=== PATIENT | female | born 1995 | race Caucasian/White ===

== ENCOUNTER → 2017-10-27 | Outpatient (CLI) | payer OTHER ==
--- NOTE | 2017-10-27 14:59 | RADIOLOGY REPORT (SQ) ---
EXAM DESCRIPTION: KNEE LEFT 3 VIEWS COMPLETED DATE/TIME: 10/27/2017 2:48 pm REASON FOR STUDY: PAIN IN LEFT KNEE M25.562 PAIN IN LEFT KNEE COMPARISON: None. NUMBER OF VIEWS: Two views. TECHNIQUE: AP and lateral radiographic images acquired of the left knee. LIMITATIONS: None. FINDINGS: MINERALIZATION: Normal. BONES: No acute fracture or dislocation. No worrisome bone lesions. JOINT: No effusion. SOFT TISSUES: No soft tissue swelling. No radio-opaque foreign body. OTHER: No other significant finding. IMPRESSION: NEGATIVE STUDY OF THE LEFT KNEE. NO RADIOGRAPHIC EVIDENCE OF ACUTE INJURY. TECHNICAL DOCUMENTATION: JOB ID: [id number] [employer]- All Rights Reserved Reading location - IP/workstation name: [email or web address]
== END ==
LOC: OD 14:23
PROVIDERS: ATTEND Nurse Practitioner Acute Care
DX: M25.562 Pain in left knee (principal)

== ENCOUNTER → 2019-09-28 | Outpatient (CLI) | payer MEDICAID, OTHER ==
--- NOTE | 2019-09-28 09:33 | ER RDC ASSESSMENT REPORT ---
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 is - Symptoms Subjective Fever([place] feverish): No Chills: No Muscule Aches: No Runny Nose: Yes --How many day(s)?: Complains of a stuffy nose Sore Throat: No Cough (New or worsening chronic cough): Yes --How many day(s)?: Reports a dry cough Shortness of breath: No Nausea or Vomiting: No Headache: Yes --How many day(s)?: Has a history of migraines Abdominal Pain: No Diarrhea(3 or more loose stools in last 24 hours): No - Do you have any of the following Chronic lung disease: Asthma or emphysema or COPD: No Cystic Fibrosis: No Diabetes: No High Blood Pressure: No Cardiovascular Disease: No Chronic Kidney Disease: No Chronic Liver Disease: No Chronic blood disorder like Sickle Cell Disease: No Weak immune system due to disease or medication: No Neurologic condition that limits movement: No Developmental delay - Moderate to Severe: No Recent (within past 2 weeks) or current : No --If current: Trimester: 2nd Comment: Patient reports is 22 weeks is [facility] Morbid Obesity (>100 pounds over ideal weight): No Obesity Comment: Height 5 feet 8 inches weight 262 pounds 22 weeks - Objective Temperature: 96.7 F Pulse Rate: 90 Respiratory Rate: 20 Blood Pressure: 122/58 O2 Sat by Pulse Oximetry: 96 Objective: Given above, testing performed: If Testing Performed: Test Specimen Type Sent to General - General Information source: Patient Notes: Patient here at [facility] for 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 Reports that exposure was less Tuesday or Tuesday. Ports having a stuffy nose occasional dry cough does have a headache but does have a history of migraines symptoms started on Sunday 09/24. contacted OB and referal to [facility] line for Covid testing. - Related Data Allergies/Adverse Reactions: amoxicillin trihydrate [From Augmentin] Allergy (Verified 07/30/12 16:45) Diarrhea Potassium Clavulanate * [From Augmentin] Allergy (Verified 07/30/12 16:44) Past Medical History - Social History Smoking Status: Former Smoker - quit two months ago. Family History: None Physical Exam - General General appearance: Appears well, Alert In distress: None Notes: PHYSICAL EXAMINATION: GENERAL: Well-appearing and in no acute distress. HEAD: Atraumatic, normocephalic. EYES: sclera anicteric, conjunctiva are normal. ENT: nares patent. Moist mucous membranes. NECK: Normal range of motion, supple without lymphadenopathy LUNGS: CTAB and equal. No wheezes rales or rhonchi. lung sounds clear resp even and unlabored. HEART: Regular rate and rhythm without murmurs ABDOMEN: Soft, nontender, normal bowel sounds, no guarding. EXTREMITIES: Normal range of motion, no pitting edema. No cyanosis. NEUROLOGICAL: Normal speech. PSYCH: Normal mood, normal affect. SKIN: Warm, Dry, normal turgor, Diagnostic Results Laboratory Results: Patient informed of negative rapid strep and negative rapid flu results. Pending strep culture pending COVID testing results. Patient provided Instructions on COVID to include: As a person under investigation for Covid 19, the [place] department of Health and Human Services, division of public health advises you to adhere to the following guidance until your test results are reported to you. If your test result is positive, you will receive additional information from your provider and your local health department at that time. Remain at home until you are cleared by the health provider or public health authorities. Keep a log of visitors to your home, notify any visitors to your home of your isolation status. If you plan to move to a new address or leave the [facility], notify the local health department in your County. Call your doctor or seek care if you have an urgent medical need. Before seeking medical care, call ahead to get instructions from the provider before arriving at the medical office clinic or hospital. Notify them that you are being tested for the virus that causes Covid 19 so that arrangements can be made, as necessary, to prevent transmission to others in the healthcare setting. Next, notify the local health department in your [facility]. If a medical emergency arises and you need to call 911, inform the first responders that you are being tested for the virus that causes Covid 19. Next, notify the local health department in your county. Patient Education/Counseling Counseling/Education: Patient presents with upper respiratory symptoms worrisome for possible Covid 19. Patient does not have emergency worring symptoms such as difficulty breathing, shortness of breath, chest pain, pressure, confusion or cyanosis. Patient appears suitable for discharge. Patient's vital signs are stable and patient is nontoxic in appearance. Good return precautions have been discussed with patient, patient verbalized understanding and is agreeable with discharge plan of care at this time. RDC Discharge - Discharge Clinical Impression: COVID - 19 SCREENING Condition: Stable Disposition: Home; Selfcare
[2019-09-28 10:43] LABS: A TYPE INFLUENZA AG NEGATIVE (NEGATIVE); B INFLUENZA AG NEGATIVE (NEGATIVE)
[2019-09-28 12:52] VITALS: BP 122/58
== END ==
LOC: RDC 09:00
PROVIDERS: ATTEND Nurse Practitioner Family
DX: O26.892 Other specified pregnancy related conditions, second trimester (principal); Z20.828 Contact with and (suspected) exposure to other viral communicable diseases; R05 Cough; R51 Headache; R09.89 Other specified symptoms and signs involving the circulatory and respiratory systems; Z3A.22 22 weeks gestation of pregnancy; Z88.1 Allergy status to other antibiotic agents; Z88.8 Allergy status to other drugs, medicaments and biological substances; Z87.891 Personal history of nicotine dependence
CPT/HCPCS: 87070; 87077; 87635; 87804; 87880

== ENCOUNTER 2019-12-21 11:10 | Inpatient (IN) | payer OTHER, MEDICAID ==
[2019-12-21] MEDS ORDERED: BETAMET ACET/BETAMET NA INJ 6 MG/1 ML IM ONE (11:31)
[2019-12-21] MEDS ORDERED: BETAMET ACET/BETAMET NA INJ 6 MG/1 ML ONE (11:35)
[2019-12-21 12:25] LABS: HEMATOCRIT 31.3 % (36.0-47.0); HEMOGLOBIN 10.3 g/dL (12.0-15.5); MEAN CORPUSCULAR HEMOGLOBIN 21.2 pg (27.0-33.4); PLATELET COUNT 294 10^3/uL (150-450); RED BLOOD COUNT 4.87 10^6/uL (3.72-5.28); RED CELL DISTRIBUTION WIDTH 15.5 % (11.5-14.0); WHITE BLOOD COUNT 10.3 10^3/uL (4.0-10.5)
[2019-12-21 12:29] LABS: INTERNATIONAL RATION (INR) 0.96; PROTHROMBIN TIME 12.8 SEC (11.4-15.4)
[2019-12-21 12:30] LABS: FIBRINOGEN 439 mg/dL (209-497); PARTIAL THROMBOPLASTIN TIME 25.2 SEC (23.5-35.8)
[2019-12-21 12:41] LABS: MEAN CORPUSCULAR VOLUME 64 fl (80-97)
[2019-12-21 12:47] LABS: ABSOLUTE LYMPHOCYTES# (MANUAL) 1.4 10^3/uL (0.5-4.7); ABSOLUTE MONOCYTES # (MANUAL) 0.5 10^3/uL (0.1-1.4); ANISOCYTOSIS SLIGHT; BASOPHILS % (MANUAL) 0 % (0-2); EOSINOPHILS % (MANUAL) 0 % (0-6); LYMPHOCYTES % (MANUAL) 14 % (13-45); MONOCYTES % (MANUAL) 5 % (3-13); SEGMENTED NEUTROPHILS % (MAN) 81 % (42-78); TOTAL CELLS COUNTED 100
[2019-12-21 12:48] LABS: PLATELET COMMENT ADEQUATE; TOXIC VACUOLATION PRESENT
[2019-12-21 12:50] LABS: OVALOCYTES 1+; POIKILOCYTOSIS 1+; POLYCHROMASIA 1+
[2019-12-21] MEDS ORDERED: PENICILLIN G-K 5 MILLION UNIT VIAL ONE ×2 (12:50→17:26)
[2019-12-21] MEDS ORDERED: RINGERS SOLUTION,LACTATED 1,000 ML IV ONE (12:51)
[2019-12-21] MEDS ORDERED: PENICILLIN G POTASSIUM 5,000,000 UNIT in DEXTROSE 5%-WATER 100 ML IV ONE (12:51)
--- NOTE | 2019-12-21 12:55 | L&D Progress Notes ---
PROGRESS NOTES Datetime Report Generated by CPN: 12/21/2019 12:55 PROGRESS NOTE Comment: pt OOB to BR, scant bleeding, actiprom +, pt notified, will start Ancef [address] Rae will discuss POC with pt, mother at BS SIGNATURE SIGNATURE: [phone] Assignment: Alaina Rae MD Signature: with User ID: [email or web address] : with User ID: [email or web address]
[2019-12-21] MEDS: RINGERS SOLUTION,LACTATED 1,000 ML IV PRN ×2 (13:08→21:37)
[2019-12-21 13:22] LABS: APPEARANCE,URINE CLOUDY; BILIRUBIN,URINE NEGATIVE (NEGATIVE); GLUCOSE, URINE NEGATIVE (NEGATIVE); KETONES,URINE NEGATIVE (NEGATIVE); LEUKOCYTE ESTERASE,URINE NEGATIVE (NEGATIVE); NITRITE,URINE NEGATIVE (NEGATIVE); PROTEIN,URINE 30 mg/dL (NEGATIVE); URINE SPECIFIC GRAVITY 1.021
[2019-12-21 13:23] LABS: COLOR,URINE DARK YELLOW
[2019-12-21] MEDS ORDERED: CEFAZOLIN 2 GM/D5W RTU 2 GM/50 ML RTUPB IV ONE (13:30)
[2019-12-21 13:43] LABS: URINE AMPHETAMINES SCREEN NEGATIVE; URINE BARBITURATES SCREEN NEGATIVE; URINE BENZODIAZEPINES SCREEN NEGATIVE; URINE COCAINE SCREEN NEGATIVE; URINE MARIJUANA (THC) SCREEN NEGATIVE; URINE METHADONE SCREEN NEGATIVE; URINE PHENCYCLIDINE SCREEN NEGATIVE
[2019-12-21 13:44] LABS: CHLAM PCR NOT DETECTED (NOT DETECT)
[2019-12-21 13:49] LABS: BACTERIA (WET MOUNT) 4+ BACTERIA SEEN; EPITHELIALS (WET MOUNT) 3+ EPITHELIALS SEEN; RBCS (WET MOUNT) 3+ RBCS SEEN; T.VAGINALIS (WET MOUNT) NO TRICHOMONAS SEEN; WBCS (WET MOUNT) 1+ WBCS SEEN; YEAST (WET MOUNT) YEAST SEEN
[2019-12-21 15:36] LABS: RHOGAM DOSE INDICATED 0.76666 VIAL(S)
--- NOTE | 2019-12-21 16:32 | Admission Physical ---
Datetime Report Generated by CPN: 12/21/2019 16:31 CURRENT ADMISSION Chief Complaint: Suspected Ruptured Membranes; Vaginal Bleeding Indication for Induction: Not Applicable Admit Impression : , Intrauterine ; Ruptured Membranes; Primary Section Admit Plan: Admit to Unit; Initiate Section Protocol ALLERGIES Medication Allergies: Yes Medication Allergies: amoxicillin trihydrate/Diarrhea (12/21/2019); Potassium Clavulanate * (12/21/2019) Latex: No Latex Allergies OBSTETRICAL HISTORY EDC: 02/02/2020 00:00 : 2 Para: 0 Term: 0 : 0 SAB: 0 IAB: 0 Ectopic: 0 Livin Cesareans: 0 VBACs: 0 Multiple Births: 0 Gestational Diabetes: No Rh Sensitization: No Incompetent Cervix: No MELISSA: No Infertility: No ART Treatment: No Uterine Anomaly: No IUGR: No Hx Previous C/S: No Macrosomia: No Hx Loss/Stillborn: No PIH: No Hx : No Placenta Previa/Abruption: No Depression/PP Depression: No PTL/PROM: No Post Hemorrhage: No Current Procedures: Ultrasound Obstetrical History Comments: G1: EAB G2: current SEE RECORDS Alcohol: No Marijuana : No Cocaine: No Other Illicit Drugs: No Cigarettes: Current Everyday Smoker. 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 Heart Disease: No Hosp/Surgery: No Autoimmune Disorder: No Anesthetic Complications: No Kidney Disease: No Abnormal Pap Smear: No Neuro/Epilepsy: No Psychiatric Disorders: No Other Medical Diseases: No Hepatitis/Liver Disease: No Significant Family History: No Varicosities/Phlebitis: No Trauma/Violence : No Thyroid Dysfunction: No Medical History Comments: wisdom teeth removal INFECTIOUS HISTORY Gonorrhea: No Genital Herpes: No Chlamydia: Yes Tuberculosis: No Syphilis: No Hepatitis: No HIV/AIDS Exposure: No Rash or Viral Illness: No HPV: No Infectious History Comments: chlamydia treated to November 2019 PHYSICAL EXAM General: Normal HEENT: Normal Neurologic: Normal Thyroid: Deferred Heart: Normal Lungs: Normal Breast: Deferred Back: Normal Abdomen: Normal Genitourinary Exam: Normal Extremities: Normal DTRs: Normal Pelvic Type: Adequate Vital Signs: Reviewed VAGINAL EXAM Dilatation: 0 FETUS A EGA: 33.6 Monitoring: External US FHR- Baseline: 120 Variability: Moderate 6-25bpm Accelerations: 15X15 Decelerations: None FHR Category: Category I Admit Comment: 24yo at 33+6ega presents for vaginal bleeding that started this am approx 1 hour ago. SHe reports bleeding somewhat decreasing. Blood looks watery - Actimprom done and positive. Known previa. Labs ordered. Type and cross for 2 units ordered. H/o EAB in 2015. Unplanned . SMoker during - decreased and then stopped during . Obesity. Beta thal - hematology consult placed from office. Suboptimal heart views x 4 - MFM consult req but will deliver before done. + chlamydia - WAYNE today. WIll try to get steroids on board. GC/CT done and GBS done. PLANS FOR LABOR AND DELIVERY Feeding Preference: Both Benefit of Breast Feed Discussed: Yes Circumcision: Yes INFORMED CONSENT Informed Consent Obtained: Section Delivery; Risks, Benefits and Alternatives Discussed Signature: with User ID: [email or web address]
[2019-12-21] MEDS: PENICILLIN G POTASSIUM 2,500,000 UNIT in DEXTROSE 5%-WATER 50 ML IV SCH ×2 (17:37→21:36)
[2019-12-21] MEDS ORDERED: FAMOTIDINE INJ/PF 20 MG/2 ML SDV IV ONE ×2 (20:17→20:18)
[2019-12-22] MEDS: PENICILLIN G POTASSIUM 2,500,000 UNIT in DEXTROSE 5%-WATER 50 ML IV SCH ×6 (01:45→21:36)
--- NOTE | 2019-12-22 09:03 | PDOC PROGRESS REPORT ---
Subjective Progress Note for:: 12/22/19 Reason For Visit: @ 34 wks today with ROM and a known placenta previa. She has minimal bleeding, (spotting only) and is due for her second dose of steroids at noon. She is hungry and would like to eat. Physical Exam - Physical Exam Vital Signs: Intake & Output 12/21/19 12/22/19 12/23/19 06:59 06:59 06:59 Intake Total 1000 Balance 1000 Weight 127.5 kg General appearance: PRESENT: no acute distress, cooperative - Obstetrical Exam Fundal Height: 3/u - 4/u Result Laboratory Results: 12/21/19 11:52 12/21/19 12/21/19 12/21/19 11:52 11:52 12:55 WBC 10.3 RBC 4.87 Hgb 10.3 L Hct 31.3 L MCV 64 L MCH 21.2 L MCHC 33.0 RDW 15.5 H Plt Count 294 Seg Neutrophils % Not Reportable Urine Color DARK YELLOW Urine Appearance CLOUDY Urine pH 6.0 Ur Specific [place] 1.021 Urine Protein 30 H Urine Glucose (UA) NEGATIVE Urine Ketones NEGATIVE Urine Blood LARGE H Urine Nitrite NEGATIVE Ur Leukocyte Esterase NEGATIVE Urine WBC (Auto) 8 Urine RBC (Auto) >182 Blood Type A POSITIVE Antibody Screen NEGATIVE Assessment & Plan - Diagnosis (1) Placenta previa Is this a current diagnosis for this admission?: Yes (2) premature rupture of membranes Is this a current diagnosis for this admission?: Yes - Time Time Spent with patient: 15-24 minutes Anticipated discharge: Home Within: within 72 hours - Inpatient Certification Based on my medical assessment, after consideration of the patient's comorbidities, presenting symptoms, or acuity I expect that the services needed warrant INPATIENT care.: Yes I certify that my determination is in accordance with my understanding of Medicare's requirements for reasonable and necessary INPATIENT services [42 CFR 412.3e].: Yes Medical Necessity: Need Close Monitoring Due to Risk of Patient Decompensation, Need for Surgery - Plan Summary Plan Summary: I d/w the patient and her family member that in light of her early gestational age it is preferable to have both doses of steroids administered and that to reap the greatest benefits the delivery would not occur until 24 hours after the second dose. If the patient remains stable then, will plan for delivery tomorrow afternoon. If she starts to show signs of labor progression or hemorrage then we will immediately proceed with delivery sooner. She and family member voiced understanding. I will let patient eat lightly at this time but asked that she not eat a heavily fat laden meal. voiced understanding
[2019-12-22] MEDS ORDERED: BETAMET ACET/BETAMET NA INJ 6 MG/1 ML ONE (11:30)
[2019-12-22] MEDS ORDERED: BETAMET ACET/BETAMET NA INJ 6 MG/1 ML IM ONE (11:30)
[2019-12-22] MEDS ORDERED: FAMOTIDINE INJ/PF 20 MG/2 ML SDV IV ONE ×2 (14:00→14:08)
[2019-12-22] MEDS: RINGERS SOLUTION,LACTATED 1,000 ML IV PRN (14:14)
[2019-12-22] MEDS ORDERED: ACETAMINOPHEN 325 MG TABLET PO ONE (16:56)
[2019-12-22] MEDS ORDERED: ACETAMINOPHEN 325 MG TABLET ONE (17:05)
[2019-12-23] MEDS: RINGERS SOLUTION,LACTATED 1,000 ML IV PRN (00:08)
[2019-12-23] MEDS: PENICILLIN G POTASSIUM 2,500,000 UNIT in DEXTROSE 5%-WATER 50 ML IV SCH ×4 (02:04→16:50)
[2019-12-23 08:24] LABS: ABSOLUTE LYMPHOCYTES (AUTO) 1.9 10^3/uL (0.5-4.7); ABSOLUTE MONOCYTES (AUTO) 0.7 10^3/uL (0.1-1.4); ABSOLUTE NEUT (AUTO) 8.5 10^3/uL (1.7-8.2); BASOPHILS % (AUTO) 0.3 % (0-2); HEMATOCRIT 29.7 % (36.0-47.0); HEMOGLOBIN 9.9 g/dL (12.0-15.5); LYMPHOCYTES % (AUTO) 16.9 % (13-45); MEAN CORPUSCULAR HEMOGLOBIN 21.4 pg (27.0-33.4); MEAN CORPUSCULAR HGB CONC 33.4 g/dL (32.0-36.0); MEAN CORPUSCULAR VOLUME 64 fl (80-97); MONOCYTES % (AUTO) 6.5 % (3-13); PLATELET COUNT 286 10^3/uL (150-450); RED BLOOD COUNT 4.64 10^6/uL (3.72-5.28); RED CELL DISTRIBUTION WIDTH 15.5 % (11.5-14.0); SEGMENTED NEUTROPHILS % (AUTO) 76.3 % (42-78); TOTAL CELLS COUNTED % (AUTO) 100 %; WHITE BLOOD COUNT 11.1 10^3/uL (4.0-10.5)
[2019-12-23 08:43] LABS: ANISOCYTOSIS SLIGHT; OVALOCYTES 1+; PLATELET COMMENT ADEQUATE; POLYCHROMASIA SLIGHT; TEAR DROP CELLS 1+
[2019-12-23] MEDS ORDERED: FAMOTIDINE INJ/PF 20 MG/2 ML SDV IV ONE ×2 (09:25→09:26)
[2019-12-23] MEDS ORDERED: CEFAZOLIN 2 GM/D5W RTU 2 GM/50 ML RTUPB IV PRN (11:15)
[2019-12-23] MEDS ORDERED: CITRIC ACID/SODIUM CITRATE ORAL SOLN 15 ML UDCUP PO ONE (11:16)
[2019-12-23] MEDS ORDERED: OXYTOCIN 10 UNIT/ML VIAL ONE (11:58)
[2019-12-23] MEDS ORDERED: KETOROLAC TROMETHAMINE INJ/PF 30 MG/1 ML SDV ONE (11:58)
[2019-12-23] MEDS ORDERED: ACETAMINOPHEN 1,000 MG/100 ML RTUPB IV ONE (11:59)
[2019-12-23] MEDS ORDERED: ONDANSETRON HCL INJ/PF 4 MG/2 ML SDV ONE (11:59)
[2019-12-23] MEDS ORDERED: METHYLERGONOVINE MALEATE INJ/PF 0.2 MG/1 ML AMPULE ONE (11:59)
[2019-12-23] MEDS ORDERED: FENTANYL CITRATE INJ/PF 100 MCG/2 ML AMPUL ONE (11:59)
[2019-12-23] MEDS ORDERED: EPHEDRINE SULFATE INJ 50 MG/1 ML AMPULE ONE (11:59)
[2019-12-23] MEDS ORDERED: MIDAZOLAM 2 MG/2 ML INJ ONE (11:59)
[2019-12-23] MEDS ORDERED: CEFAZOLIN 2 GM/D5W RTU 2 GM/50 ML RTUPB IV ONE (12:08)
[2019-12-23] MEDS ORDERED: CITRIC ACID/SODIUM CITRATE ORAL SOLN 15 ML UDCUP ONE (12:08)
[2019-12-23] MEDS ORDERED: DIPHENHYDRAMINE HCL 50 MG/ML VIAL IV PRN (13:59)
[2019-12-23] MEDS ORDERED: ONDANSETRON HCL INJ/PF 4 MG/2 ML SDV IV PRN (13:59)
[2019-12-23] MEDS ORDERED: MORPHINE SULFATE 10 MG/ML INJ IV PRN ×2 (13:59→14:34)
[2019-12-23] MEDS ORDERED: FENTANYL CITRATE INJ/PF 100 MCG/2 ML AMPUL IV PRN ×3 (13:59)
[2019-12-23] MEDS ORDERED: MEPERIDINE HCL/PF INJ 25 MG/1 ML DISP.SYRIN IV PRN (13:59)
[2019-12-23] MEDS ORDERED: PROMETHAZINE HCL INJ 25 MG/1 ML VIAL IV PRN ×3 (13:59→14:34)
[2019-12-23] MEDS ORDERED: OXYCODONE-ACETAMINOPHEN 5-325 MG TABLET PO PRN ×3 (13:59→14:34)
[2019-12-23] MEDS ORDERED: ROPIVACAINE HCL 0.2% INJ/PF (2 MG/ML) 20 ML SDV ONE ×2 (14:19→14:35)
[2019-12-23] MEDS ORDERED: EPINEPHRINE INJ/PF 1 MG/1 ML AMPULE ONE (14:20)
[2019-12-23] MEDS ORDERED: RINGERS SOLUTION,LACTATED 1,000 ML IV PRN (14:34)
[2019-12-23] MEDS ORDERED: OXYTOCIN/0.9 % SODIUM CHLORIDE 30 UNIT/500 ML RTUINJ IV PRN (14:34)
[2019-12-23] MEDS ORDERED: DIPH/PERTUSS(ACELL)/TETANUS VAC/PF 0.5 ML SYR (>=10YO) IM PRN (14:34)
[2019-12-23] MEDS ORDERED: ACETAMINOPHEN 325 MG TABLET PO PRN (14:34)
[2019-12-23] MEDS ORDERED: ACETAMINOPHEN 1,000 MG/100 ML RTUPB IV PRN (14:34)
[2019-12-23] MEDS ORDERED: SIMETHICONE 80 MG TAB.CHEW PO PRN (14:34)
[2019-12-23] MEDS ORDERED: MEASLES,MUMPS&RUBELLA VACC/PF 0.5 ML VIAL SUBCUT PRN (14:34)
--- NOTE | 2019-12-23 14:47 | Operative Report ---
Operative Report DATE OF SURGERY: 12/23/19 PREOPERATIVE DIAGNOSIS: IUP @ 34 1/7 wks, pprom, placenta previa POSTOPERATIVE DIAGNOSIS: Same OPERATION: Primary low transverse hysterotomy section SURGEON: YAMILKA CANTRELL ANESTHESIA: Spinal COMPLICATIONS: Difficulty with descent of fetus fired extension of incision into active uterine segment. Kiwi vacuum was used x3 with 3 pop-off's ESTIMATED BLOOD LOSS: 650 INTRAOPERATIVE FINDINGS: Male infant cephalic presentation, was high up in the active uterine segment would not descend well secondary to patient's body habitus had difficulty with extraction of 's necessitating use of Kiwi PROCEDURE: PROCEDURE IN DETAIL: The patient was taken to the operating room, prepared and draped in a normal sterile fashion in a supine position with a leftward tilt. A transverse skin incision was made with a scalpel and carried through to the underlying layer of fascia with the same scalpel. The fascia was excised in the midline and extended laterally with Karissa. The fascia was then dissected from the rectus muscle sharply with Karissa and the rectus muscle was divided and the peritoneal cavity was entered sharply with the same Metzenbaum. With good visualization of the bladder and the uterus the bladder blade was inserted. The hysterotomy was nicked with a scalpel and extended laterally with surgeon finger fraction. Difficulty with distention necessitated several extensions of the uterine incision with bandage scissors . Kiwi vacuum was applied to head at the flexion point x3 with 3 pop-off's till adequate distention could be obtained. the infant was then delivered atraumatically. The nose and mouth were suctioned with a suction bulb, the cord was clamped and cut and handed off to awaiting pediatricians. Cord blood was collected. The placenta was removed manually. The uterus was exteriorized and cleared of clots and debris. The hysterotomy was closed with 0 Monocryl in a running, locked fashion. A second layer of the same suture was used to imbricate to ensure hemostasis. The uterus was returned to the abdomen and peritoneal cavity was cleared of clots and debris. The rectus muscle and peritoneum were repaired with mattress stitch of 2-0 Chromic. The fascia was closed with 0-Vicryl. The subcutaneous layer was closed with plain catgut and the skin was closed with 4-0 Vicryl. The patient tolerated the procedure well. Sponge, lap, and needle counts correct x2 and the patient was taken to recovery in stable condition.
--- NOTE | 2019-12-23 15:08 | Warning Signs in Babies ---
VOD Warning Signs Datetime Report Generated by [facility]: 12/23/2019 15:08 VOD#[id number] -Warning Signs in Babies: Needs to be viewed. (12/21/2019 11:52:Quin Cochran RN)
[2019-12-23] MEDS ORDERED: MORPHINE SULFATE 10 MG/ML INJ ONE (15:17)
[2019-12-23] MEDS ORDERED: OXYTOCIN/0.9 % SODIUM CHLORIDE 30 UNIT/500 ML RTUINJ ONE (15:17)
--- NOTE | 2019-12-23 16:58 | Delivery Summary ---
Del Sum A-C Datetime Report Generated by CPN: 12/23/2019 16:57 DELIVERY PERSONNEL DELIVERY PERSONNEL: [id number] Delivery Doctor:: Mervat Israel MD Anesthesiologist:: Dr galloway RURAL MAIL CONTRACTOR:: Georgina Salazar CRNA Labor and Delivery Nurse:: Quin Cochran RN Door Installer:: Quin Cochran RN Neonatal Nurse Practitioner:: STALIN Gomes Nursery Nurse:: Ramona Leon RN Deck Lid Fitter/FUNERAL PRE ARRANGEMENT SPECIALIST: Gloria Perez CST Deck Lid Fitter/FUNERAL PRE ARRANGEMENT SPECIALIST: Katia Ontiveros CST Additional Personnel: : Katia Ontiveros RN MATERNAL INFORMATION Delivery Anesthesia: Spinal Medications After Delivery: Pitocin 30 Units in 500ml NS/D5W Delivery QBL: 650 Maternal Complications: Placenta Previa; Premature Rupture of Membranes LABOR SUMMARY EDC: 02/02/2020 00:00 No. Babies in Womb: 1 Attempted: No Labor Anesthesia: None LABOR INFORMATION Reason for Induction: Not Applicable Oxytocin: N/A Group B Beta Strep: unknown Antibiotics # of Doses: PCN x12, ancef x1 Antibiotics Time of Last Dose: 2 Name of Antibiotic Given: PCN, Ancef Steroids Given: Full Course; > 24 Hours before Delivery Reason Steroids Not Administered: Not Applicable MEMBRANES Membranes Rupture Method: Spontaneous Rupture of Membranes: 12/21/2019 10:30 Length of Rupture (hr): 51.15 Amniotic Fluid Color: Bloody Amniotic Fluid Amount: Small Amniotic Fluid Odor: None STAGES OF LABOR Stage 3 hr: 0 Stage 3 min: 2 VAGINAL DELIVERY Episiotomy: None Laceration #1: None Laceration Extension #1: N/A Laceration Repair: Not Applicable Sponge Count Correct: N/A Sharps Count Correct: N/A CSECTION DELIVERY Primary Indication: Placenta Previa Other Primary Indication: PPROM CSection Urgency: Non-Scheduled CSection Incidence: Primary Labor: No Labor Elective: Nonelective CSection Incision: Lower Uterine Transverse BABY A INFORMATION Delivery Date/Time: 12/23/2019 13:39 Method of Delivery: Nurse Controlled Delivery: No Born in Route : No : N/A Forceps: N/A Vacuum Extraction: Successful Shoulder Dystocia : No ASSISTED DELIVERY BABY A Vacuum Number of Pulls: 3 Vacuum Number of PopOffs: 2 Vacuum [employer] Guidance Counselor: kiwi PRESENTATION/POSITION BABY A Presentation: Cephalic Cephalic Presentation: Vertex Breech Presentation: N/A PLACENTA INFORMATION BABY A Placenta Delivery Time : 12/23/2019 13:41 Placenta Method of Delivery: Manual Removal Placenta Status: Delivered SCORES BABY A Heart Rate 1 min: >100 bpm Resp Effort 1 min: Good Cry Reflex Irritability 1 min: Cough or Sneeze or Pulls Away Muscle Tone 1 min: Active Motion Color 1 min: Body [place], Extremities Blue Resuscitation Effort 1 min: Tactile Stimulation SCORE 1 MIN: 9 Heart Rate 5 min: >100 bpm Resp Effort 5 min: Good Cry Reflex Irritability 5 min: Cough or Sneeze or Pulls Away Muscle Tone 5 min: Active Motion Color 5 min: Body [place], Extremities Blue SCORE 5 MIN: 9 INFORMATION BABY A Gestational Age at Delivery: 34.1 Gestational Status: Late - 34- 36.6 Weeks Infant Outcome : Liveborn Condition : Stable Sex: Male IDENTIFICATION BABY A Verification Date/Time: 12/23/2019 13:45 ID Band Number: [id number] Mother's Name Verified: Yes RN Verifying : C. Grundy RN; M. Weston, RN WEIGHT/LENGTH BABY A Birthweight (gm): 3094 Infant Weight (lb): 6 Infant Weight (oz): 13 Length (in): 18.25 Infant Length (cm): 46.36 CORD INFORMATION BABY A No. Cord Vessels: 3 Nuchal Cord : N/A Cord Blood Taken: Yes-For Eval (Mom's Blood Type - or O+) Infant Suction: None ASSESSMENT BABY A Infant Complications: Other Infant Complications- Other: PPROM 34.1 weeks Skin to Skin: No It Risk And Assurance Manager/ALS Called : Yes Infant Care By: Eliezer Leon RN Transferred To: NICU BABY B INFORMATION : N/A
[2019-12-23] MEDS: DOCUSATE SODIUM 100 MG CAPSULE PO SCH (18:08)
[2019-12-23] MEDS: OXYCODONE-ACETAMINOPHEN 5-325 MG TABLET PO PRN (18:20)
[2019-12-23] MEDS ORDERED: KETOROLAC TROMETHAMINE INJ/PF 30 MG/1 ML SDV IV SCH (22:00)
[2019-12-23] MEDS: KETOROLAC TROMETHAMINE INJ/PF 30 MG/1 ML SDV IV SCH (23:00)
[2019-12-24] MEDS: OXYCODONE-ACETAMINOPHEN 5-325 MG TABLET PO PRN ×2 (03:48→13:15)
[2019-12-24] MEDS: KETOROLAC TROMETHAMINE INJ/PF 30 MG/1 ML SDV IV SCH (06:15)
[2019-12-24 07:39] LABS: HEMATOCRIT 28.2 % (36.0-47.0); HEMOGLOBIN 9.2 g/dL (12.0-15.5); MEAN CORPUSCULAR HGB CONC 32.5 g/dL (32.0-36.0); MEAN CORPUSCULAR VOLUME 65 fl (80-97); PLATELET COUNT 283 10^3/uL (150-450); RED BLOOD COUNT 4.36 10^6/uL (3.72-5.28); RED CELL DISTRIBUTION WIDTH 15.9 % (11.5-14.0)
[2019-12-24] MEDS: DOCUSATE SODIUM 100 MG CAPSULE PO SCH ×2 (10:32→17:50)
[2019-12-24] MEDS: PRENATAL VITAMIN W DHA CAPSULE PO SCH (10:32)
--- NOTE | 2019-12-24 10:35 | PDOC PROGRESS REPORT ---
Subjective-OB Progress Note for:: 12/24/19 Physical Exam (OB) Vital Signs: Temp Pulse Resp BP Pulse Ox 98.2 F 79 16 120/68 96 12/24/19 07:30 12/24/19 07:30 12/24/19 07:30 12/24/19 07:30 12/24/19 07:30 Intake & Output 12/23/19 12/24/19 12/25/19 06:59 06:59 06:59 Intake Total 1000 2390 400 Output Total 1150 Balance 1000 1240 400 - PIH/Pre-Eclampsia Headache: Absent Epigastric Pain: No Visual Changes: No - Dressing Removed: No - opsite dressing D&I, small drainage noted Incision: Well Approximated - Lochia Lochia Amount: Scant < 10 ml Lochia Color: Rubra/Red - Abdomen Description: Tender, Soft Hernia Present: No Bowel Sounds: Normoactive Flatus Presence: Present Stool: No Fundal Description: Firm, Midline Fundal Height: u/u - u/2 Objective-Diagnostic Laboratory: 12/24/19 06:57 12/24/19 06:57 WBC 18.0 H RBC 4.36 Hgb 9.2 L Hct 28.2 L MCV 65 L MCH 21.0 L MCHC 32.5 RDW 15.9 H Plt Count 283 12/21/19 11:26 Vaginal/Anorectal Group B Streptococcus Culture - Final GROUP B BETA HEMOLYTIC STREPTOCOCCUS RECOVERED Assessment and Plan(PN) - Disposition Anticipated Discharge: Home
[2019-12-24] MEDS: IBUPROFEN 800 MG TABLET PO SCH ×3 (12:16→23:28)
[2019-12-24 12:35] LABS: PATH REVIEW PATHOLOGIST REVIEWED
[2019-12-25] MEDS: IBUPROFEN 800 MG TABLET PO SCH ×2 (05:26→13:22)
[2019-12-25 07:59] LABS: HEMATOCRIT 25.8 % (36.0-47.0); HEMOGLOBIN 8.5 g/dL (12.0-15.5); MEAN CORPUSCULAR HEMOGLOBIN 21.3 pg (27.0-33.4); MEAN CORPUSCULAR HGB CONC 32.9 g/dL (32.0-36.0); MEAN CORPUSCULAR VOLUME 65 fl (80-97); PLATELET COUNT 257 10^3/uL (150-450); RED BLOOD COUNT 3.98 10^6/uL (3.72-5.28); RED CELL DISTRIBUTION WIDTH 15.6 % (11.5-14.0); WHITE BLOOD COUNT 13.8 10^3/uL (4.0-10.5)
[2019-12-25] MEDS: DOCUSATE SODIUM 100 MG CAPSULE PO SCH (09:15)
[2019-12-25] MEDS: PRENATAL VITAMIN W DHA CAPSULE PO SCH (09:15)
--- NOTE | 2019-12-25 11:42 | PDOC DISCHARGE SUMMARY ---
Impression - Admit/DC Date/PCP Admission Date/Primary Care Provider: 12/21/19 12:52 PEG CHRISTY MD Discharge Date: 12/25/19 - Discharge Diagnosis (1) Anemia Is this a current diagnosis for this admission?: Yes (2) Delivery by emergency caesarean section Is this a current diagnosis for this admission?: Yes (3) Placenta previa Is this a current diagnosis for this admission?: Yes (4) Is this a current diagnosis for this admission?: Yes (5) premature rupture of membranes Is this a current diagnosis for this admission?: Yes - Additional Information Resuscitation Status: Full Code Discharge Diet: Regular Discharge Activity: Activity As Tolerated, Balance Activity w/Rest, No Lifting Over 10 Pounds, Pelvic Rest, No tub bath Referrals: PEG CHRISTY MD [Primary Care Provider] - Prescriptions: Oxycodone HCl/Acetaminophen [Percocet 5-325 mg Tablet] 1 tab PO Q4HP PRN #30 tab let PRN Reason: For Pain Scale 3-5 Ibuprofen [Motrin 800 mg Tablet] 800 mg PO Q8HP PRN #60 tablet PRN Reason: Home Medications: Ferrous Sulfate [Ferosul] 325 mg PO DAILY 12/21/19 No122/Iron/Folic Acid [ Multi Tablet] 1 tab PO DAILY 12/21/19 Ibuprofen [Motrin 800 mg Tablet] 800 mg PO Q8HP PRN #60 tablet 12/25/19 Oxycodone HCl/Acetaminophen [Percocet 5-325 mg Tablet] 1 tab PO Q4HP PRN #30 tablet 12/25/19 HPI Gestational Age: 33.6 Reason(s) for Admission: PROM, Obstetric Complications Procedures: NST, Management of Obstetric Complications Intrapartum Procedure(s): : Low Cervical, Transverse Results Laboratory Results: WBC 13.8 10^3/uL (4.0-10.5) H 12/25/19 07: RBC 3.98 10^6/uL (3.72-5.28) 12/25/19 07:20 Hgb 8.5 g/dL (12.0-15.5) L 12/25/19 07:20 Hct 25.8 % (36.0-47.0) L 12/25/19 07:20 MCV 65 fl (80-97) L 12/25/19 07:20 MCH 21.3 pg (27.0-33.4) L 12/25/19 07:20 MCHC 32.9 g/dL (32.0-36.0) 12/25/19 07:20 RDW 15.6 % (11.5-14.0) H 12/25/19 07:20 Plt Count 257 10^3/uL (150-450) 12/25/19 07:20 Lymph % (Auto) 16.9 % (13-45) 12/23/19 07:39 [place] % (Auto) 6.5 % (3-13) 12/23/19 07:39 Eos % (Auto) 0.0 % (0-6) 12/23/19 07:39 Baso % (Auto) 0.3 % (0-2) 12/23/19 07:39 Absolute Neuts (auto) 8.5 10^3/uL (1.7-8.2) H 12/23/19 07:39 Absolute Lymphs (auto) 1.9 10^3/uL (0.5-4.7) 12/23/19 07:39 Absolute Monos (auto) 0.7 10^3/uL (0.1-1.4) 12/23/19 07:39 Absolute Eos (auto) 0.0 10^3/uL (0.0-0.6) 12/23/19 07:39 Absolute Basos (auto) 0.0 10^3/uL (0.0-0.2) 12/23/19 07:39 Total Counted 100 12/21/19 11:52 Seg Neutrophils % 76.3 % (42-78) 12/23/19 07:39 Seg Neuts % (Manual) 81 % (42-78) H 12/21/19 11:52 Lymphocytes % (Manual) 14 % (13-45) 12/21/19 11:52 Monocytes % (Manual) 5 % (3-13) 12/21/19 11:52 Eosinophils % (Manual) 0 % (0-6) 12/21/19 11:52 Basophils % (Manual) 0 % (0-2) 12/21/19 11:52 Abs Neuts (Manual) 8.3 10^3/uL (1.7-8.2) H 12/21/19 11:52 Abs Lymphs (Manual) 1.4 10^3/uL (0.5-4.7) 12/21/19 11:52 Abs Monocytes (Manual) 0.5 10^3/uL (0.1-1.4) 12/21/19 11:52 Absolute Eos (Manual) 0.0 10^3/uL (0.0-0.6) 12/21/19 11:52 Abs Basophils (Manual) 0.0 10^3/uL (0.0-0.2) 12/21/19 11:52 Toxic Vacuolation PRESENT 12/21/19 11:52 Platelet Comment ADEQUATE 12/23/19 07:39 Polychromasia SLIGHT 12/23/19 07:39 Poikilocytosis 1+ 12/21/19 11:52 Anisocytosis SLIGHT 12/23/19 07:39 Microcytosis 3+ 12/23/19 07:39 Tear Drop Cells 1+ 12/23/19 07:39 Ovalocytes 1+ 12/23/19 07:39 Fetomaternal Hemorrhag 23.00 ML (0) 12/21/19 11:52 Kleihauer-Betke Stain POSITIVE (NEGATIVE) 12/21/19 11:52 PT 12.8 SEC (11.4-15.4) 12/21/19 11:52 INR 0.96 12/21/19 11:52 APTT 25.2 SEC (23.5-35.8) 12/21/19 11:52 Fibrinogen 439 mg/dL (209-497) 12/21/19 11:52 Urine Color DARK YELLOW 12/21/19 12:55 Urine Appearance CLOUDY 12/21/19 12:55 Urine pH 6.0 (5.0-9.0) 12/21/19 12:55 Ur Specific [place] 1.021 12/21/19 12:55 Urine Protein 30 mg/dL (NEGATIVE) H 12/21/19 12:55 Urine Glucose (UA) NEGATIVE mg/dL (NEGATIVE) 12/21/19 12:55 Urine Ketones NEGATIVE mg/dL (NEGATIVE) 12/21/19 12:55 Urine Blood LARGE (NEGATIVE) H 12/21/19 12:55 Urine Nitrite NEGATIVE (NEGATIVE) 12/21/19 12:55 Urine Bilirubin NEGATIVE (NEGATIVE) 12/21/19 12:55 Urine Urobilinogen 2.0 mg/dL (<2.0) H 12/21/19 12:55 Ur Leukocyte Esterase NEGATIVE (NEGATIVE) 12/21/19 12:55 Urine WBC (Auto) 8 /HPF 12/21/19 12:55 Urine RBC (Auto) >182 /HPF 12/21/19 12:55 Urine Bacteria (Auto) TRACE /HPF 12/21/19 12:55 Squamous Epi Cells Auto 9 /HPF 12/21/19 12:55 Urine Mucus (Auto) MOD /LPF 12/21/19 12:55 Urine Ascorbic Acid NEGATIVE (NEGATIVE) 12/21/19 12:55 Membranes Rupture POSITIVE (NEGATIVE) H 12/21/19 11:26 Epi Cells (Wet Prep) 3+ EPITHELIALS SEEN 12/21/19 11:26 Bacteria (Wet Prep) 4+ BACTERIA SEEN 12/21/19 11:26 Trichomonas (Wet Prep) NO TRICHOMONAS SEEN 12/21/19 11:26 Vaginal WBC 1+ WBCS SEEN 12/21/19 11:26 Vaginal RBC 3+ RBCS SEEN 12/21/19 11:26 Vaginal Yeast YEAST SEEN 12/21/19 11:26 Urine Opiates Screen NEGATIVE 12/21/19 12:55 Urine Methadone Screen NEGATIVE 12/21/19 12:55 Ur Barbiturates Screen NEGATIVE 12/21/19 12:55 Ur Phencyclidine Scrn NEGATIVE 12/21/19 12:55 Ur Amphetamines Screen NEGATIVE 12/21/19 12:55 U Benzodiazepines Scrn NEGATIVE 12/21/19 12:55 Urine Cocaine Screen NEGATIVE 12/21/19 12:55 U Marijuana (THC) Screen NEGATIVE 12/21/19 12:55 RPR NONREACTIVE (NONREACTIVE) 12/21/19 11:52 Chlamydia DNA (PCR) NOT DETECTED (NOT DETECT) 12/21/19 11:26 N.gonorrhoeae DNA (PCR) NOT DETECTED (NOT DETECT) 12/21/19 11:26 Slides for Path Review PATHOLOGIST REVIEWED 12/21/19 11:52 Blood Type A POSITIVE 12/21/19 11:52 Blood Type Confirm A POSITIVE 12/21/19 11:52 Antibody Screen NEGATIVE 12/21/19 11:52 Crossmatch See Detail 12/21/19 11:52 Plan Plan of Treatment: f/u at [facility] for incision check as directed Time Spent: Less than 30 Minutes
[2019-12-25 14:27] VITALS: BP 107/66
[2019-12-29] MEDS ORDERED: IBUPROFEN 800 MG TABLET PO SCH
== END 2019-12-25 15:55 | disposition home or self-care (01) | DRG 786 ==
LOC: LC 11:10 → LR 11:42 → OBSVTOIN 12:52 → 2S 12-23 16:19
PROVIDERS: ADMIT Student in an Organized Health Care Education/Training Program; ATTEND Student in an Organized Health Care Education/Training Program
PROC: 10D00Z1 Extraction of Products of Conception, Low, Open Approach (ICD-10-PCS; principal; 2019-12-23)
DX: O42.113 Preterm premature rupture of membranes, onset of labor more than 24 hours following rupture, third trimester (principal); O44.13 Complete placenta previa with hemorrhage, third trimester; O99.334 Smoking (tobacco) complicating childbirth; F17.210 Nicotine dependence, cigarettes, uncomplicated; Z37.0 Single live birth; Z86.19 Personal history of other infectious and parasitic diseases; E66.9 Obesity, unspecified; Z3A.34 34 weeks gestation of pregnancy; O99.02 Anemia complicating childbirth; D64.9 Anemia, unspecified
CPT/HCPCS: 36415; 80307; 81001; 84112; 85025; 85027; 85384; 85460; 85610; 85730; 86592; 86850; 86900; 86901; 86920; 87077; 87081; 87210; 87491; 87591; 94760; 94799; 96372; C1758; J0131; J0171; J0690; J0702; J1885; J2210; J2250; J2270; J2405; J2540; J2590; J2795; J3010; J3490; J7060; J7120; S0028